=== PATIENT | female | born 1945 | race Caucasian/White ===

== ENCOUNTER → 2017-12-09 | Outpatient (CLI) | payer MEDICARE ==
[~2017-12-09] MED LIST: AMLO1TAB15 PO; ASPI-1197 PO; CHOL200074 PO; GLUC-145 PO; LEVO50TA11 PO; LEVO75TA10 PO; MAXZIDE PO; METF500T6 PO; albuterol IH; singulair PO
== END | disposition home or self-care (01) ==
LOC: RAH 07:55
PROVIDERS: ATTEND Family Medicine
DX: N64.4 Mastodynia (principal)
CPT/HCPCS: 77066

== ENCOUNTER 2018-03-08 14:49 | Emergency (ER) | payer MEDICARE | END 2018-03-08 15:32 | disposition home or self-care (01) | LOC: EDH 14:49 | DX: S80.261A Insect bite (nonvenomous), right knee, initial encounter (principal); L03.115 Cellulitis of right lower limb; I10 Essential (primary) hypertension; E07.9 Disorder of thyroid, unspecified; E11.9 Type 2 diabetes mellitus without complications; Z79.84 Long term (current) use of oral hypoglycemic drugs; Z88.1 Allergy status to other antibiotic agents; Z79.2 Long term (current) use of antibiotics; Z79.899 Other long term (current) drug therapy; W57.XXXA Bitten or stung by nonvenomous insect and other nonvenomous arthropods, initial encounter; Y93.89 Activity, other specified; Y92.89 Other specified places as the place of occurrence of the external cause; Y99.8 Other external cause status ==

== ENCOUNTER → 2018-12-29 | Outpatient (CLI) | payer MEDICARE ==
[~2018-12-29] MED LIST changes: +METF-444 PO; -METF500T6 PO
== END | disposition home or self-care (01) ==
LOC: RAH 12:54
PROVIDERS: ATTEND Family Medicine
DX: N64.4 Mastodynia (principal)
CPT/HCPCS: 77066

== ENCOUNTER → 2019-03-24 | Outpatient (CLI) | payer MEDICARE | END | disposition home or self-care (01) | LOC: SHCH 09:19 | PROVIDERS: ATTEND Internal Medicine Cardiovascular Disease | DX: I87.2 Venous insufficiency (chronic) (peripheral) (principal) | CPT/HCPCS: 93970 ==

== ENCOUNTER → 2020-02-15 | Outpatient (CLI) | payer MEDICARE | END | disposition home or self-care (01) | LOC: SHCH 09:41 | PROVIDERS: ATTEND Internal Medicine Cardiovascular Disease | DX: I87.2 Venous insufficiency (chronic) (peripheral) (principal); K21.9 Gastro-esophageal reflux disease without esophagitis | CPT/HCPCS: 93970 ==

== ENCOUNTER → 2020-07-06 | Outpatient (CLI) | payer MEDICARE | END | disposition home or self-care (01) | LOC: RAH 08:29 | PROVIDERS: ATTEND Family Medicine | DX: N63.10 Unspecified lump in the right breast, unspecified quadrant (principal); N63.20 Unspecified lump in the left breast, unspecified quadrant; R92.1 Mammographic calcification found on diagnostic imaging of breast; R92.8 Other abnormal and inconclusive findings on diagnostic imaging of breast | CPT/HCPCS: 77066 ==

== ENCOUNTER → 2022-12-02 | Outpatient (CLI) | payer MEDICARE ==
[~2022-12-02] MED LIST changes: +CLOP-31 PO; +POTA-79 PO
== END | disposition home or self-care (01) ==
LOC: RAH 10:48
PROVIDERS: ATTEND Family Medicine
DX: N64.4 Mastodynia (principal); R92.2 Inconclusive mammogram
CPT/HCPCS: 77066

== ENCOUNTER → 2022-12-17 | Outpatient (CLI) | payer MEDICARE | END | disposition home or self-care (01) | LOC: SHCH 08:54 | PROVIDERS: ATTEND Internal Medicine Cardiovascular Disease | DX: I87.2 Venous insufficiency (chronic) (peripheral) (principal) | CPT/HCPCS: 93970 ==

== ENCOUNTER → 2024-09-08 | Outpatient (CLI) | payer MEDICARE ==
[~2024-09-08] MED LIST changes: +AMLO-257 PO; -CHOL200074 PO; -CLOP-31 PO; -GLUC-145 PO; +LEVO75CA5 PO; -LEVO75TA10 PO; -MAXZIDE PO; +METO-408 PO; +OLME40TA70 PO; -POTA-79 PO; +PRAS10TA9 PO; +TRIA1TAB93 PO; -albuterol IH; -singulair PO
--- NOTE | 2024-09-08 15:07 | HMCIMG ---
MR BRAIN WO CON REASON: I67.9 Cerebrovascular disease, unspecified TECHNIQUE: Routine cerebral imaging protocol was performed. Exam was performed without IV contrast. STUDIES FOR COMPARISON: None. FINDINGS: There are diffusely generous ventricles and sulci. Findings are consistent with diffuse global atrophy. There are also focal areas of increased signal intensity within the deep central white matter consistent with small vessel disease. There are no focal mass lesions. There are no abnormal fluid collections. There is no evidence of intracranial hemorrhage. Diffusion-weighted images are negative for acute ischemic event. Posterior fossa and brainstem structures appear normal as well. Calvarium appears unremarkable. Extracranial soft tissues appear normal as well. IMPRESSION: 1. Diffusely generous ventricles and sulci consistent with a component of global atrophy. 2. No acute finding, no focal lesion identified.
== END | disposition home or self-care (01) ==
LOC: RAH 10:44
PROVIDERS: ATTEND Family Medicine
DX: I67.9 Cerebrovascular disease, unspecified (principal); R90.82 White matter disease, unspecified
CPT/HCPCS: 70544

== ENCOUNTER → 2025-06-02 | Outpatient (CLI) | payer MEDICARE ==
[~2025-06-02] MED LIST changes: -AMLO-257 PO; -AMLO1TAB15 PO; +APIX2.5T PO; +APIX5TAB PO; +ASPI-1005 PO; -ASPI-1197 PO; +BISA-189 PO; +CHOL100034 PO; +CLOP-31 PO; +DILT-118 PO; +DILT180C63 PO; +DRON400T7 PO; -LEVO50TA11 PO; -LEVO75CA5 PO; +LEVO75CA6 PO; -METO-408 PO; +OLME20TA68 PO; -OLME40TA70 PO; -PRAS10TA9 PO; +TUME1CAP PO; +apixaban PO
[2025-06-02 08:17] LABS: INR 0.96 (0.85-1.15)
--- NOTE | 2025-06-02 09:30 | NUR ---
U/S GUIDED LEFT THYROID NODULE BX PROCEDURE PERFORMED BY DR. DANICA ESPINOZA. PUNCTURE SITE LEFT MID NECK AND PATIENT TOLERATED PROCEDURE WELL. SPECIMEN X3 COLLECTED AND SENT TO LAB. END OF PROCEDURE AT 0910. BIOPSY NEEDLE REMOVED AND BAND-AID APPLIED- NO BLEEDING NOTED. DISCHARGE INSTRUCTIONS GIVEN TO PATIENT AND VERBALIZED UNDERSTANDING. PATIENT DISCHARGED AMBULATORY AND ALERT WITH NO C/O PAIN.
--- NOTE | 2025-06-02 13:08 | HMCIMG ---
Ultrasound-guided thyroid biopsy- core biopsy CLINICAL INDICATION: Left thyroid nodule. COMPARISON: None. PROCEDURE: The procedure, with its potential risks and complications, was discussed with the patient, including the option of not performing the procedure. Verbal and written consent was obtained. A time-out was observed to confirm the correct patient, procedure, and site. With the patient in supine position, the target nodule was identified by ultrasound. A skin site was marked, and the skin was prepped and draped in usual sterile fashion. Infiltration of 7 cc of 1% lidocaine into the subcutaneous tissues was performed for local anesthesia. Under ultrasound guidance, 3 passes with a 20 gauge needle were made into the nodule. Ultrasound immediately postprocedure showed no adjacent hematoma. Patient was observed for 30 minutes, and experienced no immediate postprocedure complications. IMPRESSION: Successful ultrasound-guided biopsy.
== END | disposition home or self-care (01) ==
LOC: RAH 07:36
PROVIDERS: ATTEND Internal Medicine
DX: E04.1 Nontoxic single thyroid nodule (principal); I10 Essential (primary) hypertension; E03.9 Hypothyroidism, unspecified; I25.2 Old myocardial infarction; Z79.01 Long term (current) use of anticoagulants
CPT/HCPCS: 36415; 60100; 76942; 85610; 85730; 88305